=== PATIENT | female | born 1945 | race Caucasian/White ===

== ENCOUNTER 2016-11-15 08:20 | Day surgery (SDC) | payer MEDICARE, OTHER ==
[~2016-11-15 08:20] MED LIST: CALCIUM PO; CELEBREX200 M1 PO; CPAP; GLUCOSAMINE 1,1 EACH PO; HYDROCODON-ACE1 EA15 PO; LOVAZA1 GM/CAP PO; PLAVIX75 M1 PO; SYNTHROID88 MC1 PO; VITAMIN D31000 UNI3 PO; [UNRECOGNIZED DRUG - OTHER] TP
[2016-11-15 09:12] LABS: BASO % 0.3 % (0-2); EOS % 2.7 % (0-7); EOSINOPHIL ABSOLUTE COUNT 0.2 tho/cmm (0.0-0.7); HCT-HEMATOCRIT 36.8 % (34.0-49.0); IMMATURE GRANULOCYTES ABSOLUTE 0.02 tho/cmm (0-0.03); IMMATURE GRANULOCYTES PERCENT 0.3 % (0-0.3); LYMPH ABSOLUTE COUNT 1.6 tho/cmm (0.8-4.5); MCH (MEAN CORPUSCULAR HGB) 28.4 pg (28.0-32.0); MCHC MEAN CORPUSCULAR HGB CONC 32.6 % (32.0-36.0); MCV (MEAN CELL VOLUME) 87.2 fl (82.0-96.0); MEAN PLATELET VOLUME 9.9 cmc (9.4-12.4); MONO % 9.9 % (0-12); MONOCYTE ABSOLUTE COUNT 0.6 tho/cmm (0.0-1.2); NEUTROPHIL ABSOLUTE COUNT 3.9 tho/cmm (1.6-8.0); NEUTROPHIL-AUTOMATED 3.9 tho/cmm (1.6-8.0); NEUTROPHILS % 61.8 % (40-80); PLATELET COUNT 268 tho/cmm (150-450); RED BLOOD COUNT 4.22 mil/cmm (4.00-5.20); RED CELL DISTRIBUTION WIDTH 14.3 % (12.4-16.4); WHITE BLOOD COUNT 6.3 tho/cmm (4.0-10.0)
[2016-11-15 09:23] LABS: ANION GAP 12 mmol/L (0-20); BLOOD UREA NITROGEN 14 mg/dl (6-24); CALCIUM 9.3 mg/dl (8.5-10.5); CARBON DIOXIDE-VENOUS 27 mmol/L (22-32); CHLORIDE 109 mmol/l (96-110); GLUCOSE 89 mg/dL (70-110); POTASSIUM 4.2 mmol/L (3.7-5.1); SODIUM 144 mmol/L (135-145); eGFR VALUE FOR BLACK 76 mL/Min
[2016-11-15 09:33] LABS: PROTHROMBIN TIME 11.4 SECONDS (9.0-13.6)
== END 2016-11-15 18:15 ==
LOC: RADSP 08:20 → SHSB 08:23
PROVIDERS: Radiology Diagnostic Radiology
PROC: B51 Imaging, Veins, Fluoroscopy (ICD-10-PCS; principal; 2016-11-15)
PROC: [UNRECOGNIZED PROCEDURE] (2016-11-15)
DX: I86.2 Pelvic varices (principal); Z79.02 Long term (current) use of antithrombotics/antiplatelets; Z79.1 Long term (current) use of non-steroidal anti-inflammatories (NSAID); Z79.899 Other long term (current) drug therapy; Z88.1 Allergy status to other antibiotic agents; Z91.040 Latex allergy status; Z90.89 Acquired absence of other organs; Z98.51 Tubal ligation status; Z98.890 Other specified postprocedural states
CPT/HCPCS: C1760; C1770; C1887; J0690; J1885; J2250; J3010; J7030; Q9967